=== PATIENT | male | born 1985 | race Hispanic/Latino ===

== ENCOUNTER 2020-03-16 00:37 | Emergency (ER) | payer SELFPAY ==
[2020-03-16] MEDS ORDERED: Proparacaine 0.5% Opth 15 ML BOT ONE (00:55)
[2020-03-16] MEDS ORDERED: Fluorescein Opthalmic Strip ONE (00:55)
== END 2020-03-16 01:53 | disposition home or self-care (01) ==
LOC: ERS 00:37
DX: T15.02XA Foreign body in cornea, left eye, initial encounter (principal); F17.210 Nicotine dependence, cigarettes, uncomplicated
CPT/HCPCS: 65222